=== PATIENT | male | born 1950 | race Asian ===

== ENCOUNTER → 2016-10-10 | Outpatient (CLI) | payer BC, MEDICARE | LOC: COL.VAS 10-08 10:15 | DX: I08.1 Rheumatic disorders of both mitral and tricuspid valves (principal); R94.31 Abnormal electrocardiogram [ECG] [EKG] ==

== ENCOUNTER 2022-04-12 07:49 | Day surgery (SDC) | payer BC ==
[~2022-04-12] VITALS: Ht 167.6 cm; Wt 62.9 kg
[2022-04-12 08:12] VITALS: BP 133/81; PULSE 69; TEMP 97.1
[2022-04-12] MEDS ORDERED: PEPCID 20MG TAB20 MG PO (08:28)
[2022-04-12] MEDS ORDERED: PROTONIX 40MG T40 MG PO (08:28)
[2022-04-12 09:40] VITALS: BP 127/93; PULSE 72
[2022-04-12 09:55] VITALS: BP 129/87; PULSE 66; TEMP 97.1
[2022-04-12 10:10] VITALS: BP 124/72; PULSE 72
--- NOTE | 2022-04-12 10:20 | NUR ---
0925 DR. MEJIA IN ROOM. VISITS WITH USING [employer] CAR WASH ATTENDANT. 0940 PATIENT RETURNS TO ROOM 1 PER CART. AWAKE, ALERT. AMBULATES TO RECLINER WITH STANDBY ASSIST. VITAL SIGNS OBTAINED. ABLE TO COMUNICATE SIMPLY WITH THIS NURSE. WHEN ASKED BY , PATIENT DENIES NAUSEA OR ABD PAIN. VITAL SIGNS OBTAINED. 0955 TOLERATES PO JUICE AND APPLESAUCE WITHOUT NAUSEA. 1005 DISCHARGE INSTRUCTIONS THOROUGHLY REVIEWED WITH PATIENT AND WITH ASSISTANCE OF CAR WASH ATTENDANT. PATIENT AND GIVEN THE OPPORTUNITY TO ASK QUESTIONS. BOTH VERBALIZE UNDERSTANDING OF VERBAL INSTRUCTIONS CAR WASH ATTENDANT CONFIRMS WITH PATIENT AND THAT DAUGHTER WILL BE ABLE TO READ AND RELAY INFORMATION ON FORMS PLACED IN. 1020 PATIENT DRESSES SELF DISCHARGE FOLDER.
== END 2022-04-12 10:23 | disposition home or self-care (01) ==
LOC: SDCO 07:49
DX: Z12.11 Encounter for screening for malignant neoplasm of colon (principal); K44.9 Diaphragmatic hernia without obstruction or gangrene; K29.50 Unspecified chronic gastritis without bleeding; K21.00 Gastro-esophageal reflux disease with esophagitis, without bleeding; B96.81 Helicobacter pylori [H. pylori] as the cause of diseases classified elsewhere; K31.7 Polyp of stomach and duodenum; D12.3 Benign neoplasm of transverse colon; D12.5 Benign neoplasm of sigmoid colon; K63.5 Polyp of colon
CPT/HCPCS: J2704; J7120